=== PATIENT | female | born 1950 | race Caucasian/White ===

== ENCOUNTER 2018-07-22 08:43 | Day surgery (SDC) | payer OTHER ==
[2018-07-21 19:21] VITALS: BMI 26.0
[2018-07-22] MEDS ORDERED: ONDANSETRON 4 MG/2 ML VIAL IVPUSH PRN (11:16)
[2018-07-22] MEDS ORDERED: LIDOCAINE HCL 1%, 10 MG/ML (20ML VIAL) ONE ×2 (11:17→12:06)
[2018-07-22] MEDS ORDERED: LACTATED RINGERS SOLUTION 1,000 ML IV SCH (11:30)
[2018-07-22] MEDS ORDERED: ceFAZolin SODIUM 1 GM VIAL IVPB ONE (11:40)
--- NOTE | 2018-07-22 11:49 | HP ---
DATE OF ADMISSION: 07/22/2018 HISTORY OF PRESENT ILLNESS: Patient is a 68-year-old female with history of overactive bladder and urgency incontinence. She failed multiple medications as well as Kegel exercises. Patient underwent the preliminary neuromodulation placement in the office and had a 90% improvement in her frequency, urgency, and nocturia. Therefore, she is here today for placement of a permanent InterStem Bladder Neuromodulator. The patient does have history of high blood pressure. She had history of a brain aneurysm as well as a CVA. She is . ALLERGIES: No allergies to medications. SOCIAL HISTORY: No ethanolism. MEDICATIONS: She takes Norvasc 10 mg daily for her high blood pressure. PHYSICAL EXAMINATION: General: Revealed a well-developed adult female in no apparent distress. Abdomen: Is soft. There is no CVA tenderness. Bladder is not distended. Extremities: Reveal full range of motion. There is no cyanosis, clubbing, or edema. Pelvic: Examination in the office revealed a normal meatus. There was no cysto-rectocele. Vaginal mucosa was slightly atrophic. No pelvic masses were palpated. LABORATORY DATA: Blood workup revealed a BUN of 17 and creatinine of 0.7, random glucose was 108. Patients liver enzymes were all within normal limits. Her INR was 0.95. EKG was normal. A chest x-ray revealed a 0.8-cm focus of increased density on the lateral x-ray. There was a slight bulge of the right lower cardiac border which could represent epicardial fat, and there was a small focus of right apical pleural thickening most likely scar. A close followup is recommended. IMPRESSION: At present is micturition disorder with neurogenic bladder. PLAN: Sacral nerve stimulation. Yanely [id number]
[2018-07-22] MEDS ORDERED: LIDOCAINE HCL 1%, 10 MG/ML (50 mL VIAL) IJ ONE (11:56)
[2018-07-22] MEDS ORDERED: BUPIVACAINE HCL/PF 0.5% (5MG/ML) 10 ML VIAL ONE (12:06)
[2018-07-22] MEDS ORDERED: BUPIVACAINE HCL/PF 0.5% (5MG/ML) 10 ML VIAL IJ ONE (12:50)
--- NOTE | 2018-07-22 13:16 | OP ---
Operative Note - Note: Operative Date: 07/22/18 Pre-Operative Diagnosis: neurogenic bladder, kerri, oab, Operation: sacral nerve neuromodulation battery insertion Post-Operative Diagnosis: Same as Pre-op Surgeon: Eliud Lynch Anesthesia: Local, Fractional Estimated Blood Loss (mls): 10 Drains, Volume Out (mls): 0 Blood Volume Replaced (mls): 0 Fluid Volume Replaced (mls): 0 Operative Report Dictated: Yes
[2018-07-22 14:06] VITALS: TEMP 97.5
[2018-07-22 17:49] VITALS: BP 131/79; PULSE 88
--- NOTE | 2018-07-23 06:58 | OP ---
DATE OF OPERATION: 07/22/2018 SURGEON: Eliud Lynch MD PREOPERATIVE DIAGNOSIS: Micturition disorder, overactive bladder, urinary incontinence. POSTOPERATIVE DIAGNOSIS: Micturition disorder, overactive bladder, urinary incontinence. OPERATIVE PROCEDURE: Implantation of neurostimulation battery and lead. DESCRIPTION OF PROCEDURE: Under neuroleptic anesthesia, patient was prepped and draped in the prone position. After proper measurements, sacral root 2 was infiltrated with lidocaine and a long needle was placed under fluoroscopic control. The lead was then placed into sacral nerve 2 and stimulation revealed excellent toe response and bellow maneuver. The lead was then subcutaneously tunneled to the right supramaximus region where a 4-cm incision was made. This was carried down through skin and subcutaneous tissue. The battery was then attached to the lead and implanted in the pocket. The wound was irrigated and closed with the 1st layer of 3-0 Vicryl suture ligature, the skin with michelle. The patient tolerated the procedure well. She returned to the recovery room in good condition. Yanely CARRANZA/[id number]
== END 2018-07-22 15:30 | disposition home or self-care (01) ==
LOC: JASU-SURG 08:43
PROVIDERS: ATTEND Urology
PROC: 01HY0MZ Insertion of Neurostimulator Lead into Peripheral Nerve, Open Approach (ICD-10-PCS; 2018-07-22)
PROC: 0JH70BZ Insertion of Single Array Stimulator Generator into Back Subcutaneous Tissue and Fascia, Open Approach (ICD-10-PCS; principal; 2018-07-22 10:00)
DX: N39.498 Other specified urinary incontinence (principal); N32.81 Overactive bladder; R39.198 Other difficulties with micturition
CPT/HCPCS: 64581; 64590; C1767; C1778; 94760